=== PATIENT | male | born 1945 | race Caucasian/White ===

== ENCOUNTER 2017-03-28 08:42 | Day surgery (SDC) | payer MEDICARE, BC ==
[~2017-03-28] VITALS: Ht 195.6 cm; Wt 81.8 kg
[~2017-03-28 08:42] MED LIST: DIGO1TAB59 PO; DUTA1CAP2 PO; OCUVCAP2 PO; VERA1TAB17 PO; VERA1TAB9 PO; WARF-23 PO
[2017-03-28 08:54] VITALS: BP 171/86; PULSE 85; RESP 20; TEMP 97.4; O2SAT 94
[2017-03-28] MEDS ORDERED: JANT7.5T PO (09:00)
[2017-03-28] MEDS ORDERED: JANT5TAB PO (09:01)
[2017-03-28] MEDS ORDERED: CHOL400D2 PO (09:03)
[2017-03-28] MEDS ORDERED: COEN400C PO (09:04)
[2017-03-28] MEDS ORDERED: VENTAER INH (09:05)
[2017-03-28] MEDS ORDERED: VITA10004 PO (09:06)
[2017-03-28] MEDS ORDERED: VITA500T83 PO (09:06)
[2017-03-28] MEDS ORDERED: GLUCCAP4 PO (09:07)
[2017-03-28] MEDS ORDERED: PENI500T PO (09:08)
[2017-03-28] MEDS ORDERED: SODIUM CHLOR 0.9% 1000 ML IV SCH (09:15)
[2017-03-28 09:45] LABS: INTERNATIONAL NORMALIZED RATIO 1.2 RATIO; PROTHROMBIN TIME - PATIENT 11.9 SEC (9.8-11.6)
[2017-03-28 09:54] LABS: AUTOMATED NEUTROPHIL # 3.2 TH/MM3 (1.8-7.7); BASOPHIL % 0.7 % (0.0-2.0); EOSINOPHIL # 0.2 TH/MM3 (0-0.4); EOSINOPHIL % 3.8 % (0.0-4.0); HEMATOCRIT 36.9 % (39.0-51.0); HEMOGLOBIN 12.8 GM/DL (13.0-17.0); LYMPH % 24.3 % (9.0-44.0); LYMPHOCYTE # 1.2 TH/MM3 (1.0-4.8); MEAN CELL VOLUME 91.3 FL (80.0-100.0); MEAN CORPUSCULAR HEMOGLOBIN 31.7 PG (27.0-34.0); MEAN CORPUSCULAR HGB CONC 34.7 % (32.0-36.0); MEAN PLATELET VOLUME 8.8 FL (7.0-11.0); MONO % 7.6 % (0.0-8.0); MONOCYTE # 0.4 TH/MM3 (0-0.9); NEUT % 63.6 % (16.0-70.0); PLATELET COUNT 165 TH/MM3 (150-450); RED BLOOD COUNT 4.04 MIL/MM3 (4.50-5.90); RED CELL DISTRIBUTION WIDTH 13.2 % (11.6-17.2)
[2017-03-28] MEDS ORDERED: LIDOCAINE HCL 1% 20 ML VIAL ONE (11:28)
[2017-03-28] MEDS ORDERED: MIDAZOLAM HCL 2 MG/2 ML VIAL ONE (12:03)
[2017-03-28 12:45] VITALS: BP 123/75; PULSE 88; RESP 16; TEMP 98; O2SAT 90
[2017-03-28 13:00] VITALS: BP 132/72; PULSE 85; RESP 16; O2SAT 90
[2017-03-28 13:30] VITALS: BP 140/71; PULSE 84; RESP 16; O2SAT 90
[2017-03-28 14:00] VITALS: BP 138/66; PULSE 79; RESP 16; O2SAT 90
[2017-03-28 14:30] VITALS: BP 142/78; PULSE 85; RESP 16; O2SAT 90
--- NOTE | 2017-03-28 16:22 | RADRPT ---
EXAM DATE/TIME: 03/28/2017 12:12 [place] COMPARISON: No previous studies available for comparison. INDICATIONS : Right iliac. SEDATION TIME: 30 minutes Right iliac MEDICATION(S): 1.) 1.5 mg midazolam (Versed) IV 2.) 75 mcg fentanyl (Sublimaze) IV DEVICE(S): 1.) Bone biopsy needle 10G MEDICAL HISTORY : Carcinoma, prostate. SURGICAL HISTORY : Appendectomy. Hernia repair. ENCOUNTER: Initial ACUITY: 1 day PAIN SCORE: 0/10 LOCATION: Right iliac A total of one core specimen(s) were obtained and sent to the laboratory for pathologic evaluation. PROCEDURE: 1. CT guided bone deep biopsy. 2. Conscious sedation with continuous EKG and oximetry monitoring. 3. EKG and oximetry remained stable throughout the procedure. Prior to the procedure informed consent was obtained. Any appropriate prior imaging studies were rev iewed. Using automated exposure control and adjustment of the mA and/or kV according to patient size, radiat ion dose was kept as low as reasonably achievable to obtain optimal diagnostic quality images. DICOM format image data is available electronically for review and comparison. The site was prepped in a sterile fashion. Full sterile technique was used, including cap, mask, dale rile gloves and gown and a large sterile sheet. Hand hygiene and 2% chlorhexidine and/or betadine/al cohol prep was utilized per protocol for cutaneous antisepsis. The skin and subcutaneous tissues wer e infiltrated with local anesthetic solution. With CT guidance the previously identified target was localized. Biopsy was performed using the presc ribed needle as above. Adequate hemostasis was obtained with compression at the puncture site. Follow-up CT scan reveals no hemorrhage. The patient tolerated the procedure well and there were no complications. The patient was returned to the Radiology Outpatient Unit in stable condition. CONCLUSION: Uncomplicated CT guided biopsy. Jefferosn López MD on March 28, 2017 at 16:19 Board Certified Radiologist. This report was verified electronically.
== END 2017-03-28 15:30 | disposition home or self-care (01) ==
LOC: HRAD 08:42 → HRIP 08:46 → HRAD 15:30
PROVIDERS: ATTEND Radiology Radiation Oncology
DX: C61 Malignant neoplasm of prostate (principal); M99.85 Other biomechanical lesions of pelvic region; Z01.818 Encounter for other preprocedural examination
CPT/HCPCS: 20220; 77012; 85025; 85610; 85730; 88307; 88341; 88342; 99152; 99153; J2250; J3010; J7030; 88305